=== PATIENT | male | born 1990 | race Caucasian/White ===

== ENCOUNTER 2017-03-14 17:05 | Emergency (ER) | payer OTHER ==
[2017-03-14 17:17] VITALS: BP 128/83
[2017-03-14] MEDS ORDERED: Albuterol 2.5 MG/3 ML NEB.SOL* (0.083%) INH ONE (17:42)
[2017-03-14] MEDS ORDERED: Ipratropium 0.5MG/2.5ML NEB* 0.5 MG/2.5 ML NEB.SOLN INH ONE (17:42)
--- NOTE | 2017-04-14 21:27 | UC ---
Stef Stephens Aidan, scribed for Liza Reza DO on 03/14/17 at 1755 . Respiratory Complaint HPI - HPI Summary HPI Summary: 26 y/o male presents to the Urgent Care with a complaint of an acute, constant, moderate, productive cough that began today. This morning, he coughed up watery fluid. Yesterday, he was diagnosed with HSV and, although his constitutional symptoms, abdominal pain, nausea, and transient sore throat began 2 days ago, they resolved this morning. Associated symptoms include episodes of diaphoresis and SOB. He claims that can only breathe in so deeply before needing to cough. Pt denies any runny nose, ear pain, sinus congestion, LANE, CP, rash, current abdominal pain, nausea, fever, or sores in or around the mouth. 2 days ago, he traveled home from [place]. - History of Current Complaint Chief Complaint: UCRespiratory Stated Complaint: COUGH,DIFFICULTY BREATHING Time Seen by Provider: 03/14/17 17:22 Hx Obtained From: Patient Onset/Duration: Sudden Onset, Lasting Hours, Still Present Timing: Constant Severity Initially: Moderate Severity Currently: Moderate Pain Intensity: 0 Pain Scale Used: 0-10 Numeric Character: Cough: Productive Aggravating Factors: Deep Breaths - Pt is unable to deeply inhale without coughing Alleviating Factors: Nothing - unknown Associated Signs And Symptoms: Negative: Negative - cough, episodes of diaphoresis and SOB (see hpi) - Allergies/Home Medications Allergies/Adverse Reactions: Allergies Allergy/AdvReac Type Severity Reaction Status Date / Time No Known Allergies Allergy Verified 05/21/15 10:24 Home Medications: Home Medications ValACYclovir (*) [Valtrex 1 GM(*)] 1 gm PO BID 03/14/17 [History Confirmed 03/14] PMH/Surg Hx/FS Hx/Imm Hx - Additional Past Medical History Additional PMH: Hx of HSV - Surgical History Surgical History: None - Family History Known Family History: Positive: Hypertension - Social History Occupation: Student Lives: Alone Alcohol Use: Weekly Substance Use Type: None Smoking Status (MU): Never Smoked Tobacco Review of Systems Constitutional: Other - episodes of diaphoresis Skin: Negative Eyes: Negative ENT: Negative Respiratory: Shortness Of Breath, Cough Cardiovascular: Negative Gastrointestinal: Negative Genitourinary: Negative Motor: Negative Neurovascular: Negative Musculoskeletal: Negative Neurological: Negative Psychological: Negative All Other Systems Reviewed And Are Negative: Yes Physical Exam Triage Information Reviewed: Yes Appearance: Well-Appearing, No Pain Distress, Well-Nourished Vital Signs: Initial Vital Signs Temp 96.6 F 03/14/17 17:12 Pulse 77 03/14/17 17:12 Resp 18 03/14/17 17:12 BP 128/83 03/14/17 17:12 Pulse Ox 98 03/14/17 17:12 Vital Signs Reviewed: Yes Eyes: Positive: Conjunctiva Clear. Negative: Discharge ENT: Positive: Hearing grossly normal, TMs normal, Other: - TMs normal, pharynx normal. Negative: Tonsillar swelling, Tonsillar exudate, Trismus, Muffled/ hoarse voice Neck exam: Normal Neck: Positive: Supple, No Lymphadenopathy Respiratory: Positive: No accessory muscle use, Wheezing - Tight scattered wheezes Cardiovascular: Positive: RRR, No Murmur Musculoskeletal Exam: Normal Neurological: Positive: Alert, Muscle Tone Normal Psychological: Positive: Normal Response To Family, Age Appropriate Behavior Skin Exam: Normal, Other - warm, dry, normal color UC Diagnostic Evaluation - Laboratory O2 Sat by Pulse Oximetry: 98 Re-Evaluation - Re-Evaluation First Eval Re-Evaluation Time: 18:19 - better air movement, wheezing resolved. Change: Improved Respiratory Course/Dx - Course Course Of Treatment: 26 y/o male presents with a productive cough and epiasodes of SOB and diaphoresis. - Differential Dx/Diagnosis Differential Diagnosis/HQI/PQRI: Bronchitis, Lower Resp Infection, Sinusitis, Other - viral syndrom Provider Diagnoses: viral syndrom, bronchospasm Discharge - Discharge Plan Condition: Stable Disposition: HOME Prescriptions: Albuterol HFA INHALER* [Ventolin HFA Inhaler*] 2 puff INH Q4H PRN #1 mdi PRN Reason: Sob/Wheezing Benzonatate CAP* [Tessalon 100 MG CAP*] 100 mg PO TID PRN #30 cap PRN Reason: Cough guaiFENesin ER TAB [Mucinex*] 600 mg PO BID PRN #1 box PRN Reason: Cough guaiFENesin/CODIEN 100MG-10MG* [Robitussin AC 100Mg-10Mg*] 5 - 10 ml PO BEDTIME PRN #100 udc MDD 10ml PRN Reason: Cough Patient Education Materials: Viral Syndrome (ED), Bronchospasm (ED) Referrals: Blanco,Edward A, MD [Primary Care Provider] - If Needed () Additional Instructions: INHALED BRONCHODILATORS: You have received a prescription for an inhaled bronchodilator -- a medication which stimulates the airways in the lung to dilate. This improves the flow of air in asthma, bronchitis, and emphysema. These medicines have some similarity to adrenaline, and can cause similar side effects: shakiness, racing heart, and a sense of nervousness. These side effects decrease with time. Contact your doctor if these side effects are severe. Do not over-use the medicine. Too-frequent use of the inhaler may make it ineffective. Call your doctor if the inhaler is not controlling your symptoms at the prescribed doses. COUGH-SUPPRESSANT & EXPECTORANT MEDICATION: You are to use a cough medication as needed for relief of symptoms. This medicine is a combination of an expectorant (to make the mucous thinner and more easily "coughed up") and a cough suppressant (to reduce the frequency of coughing). The cough-suppressant medicine is related to narcotics. You may experience mild nausea and sleepiness. Some patients who are very sensitive to narcotics may have stomach pain from this medicine. Taking the medicine with food reduces these side effects. Do not drive or work with machinery until you know how this medicine affects you. The expectorant should have no side effects. Iodine-containing expectorants (such as organidin) should not be taken by persons with active thyroid disease unless approved by your doctor. Call the doctor if you develop shortness of breath, hives, rash, itching, lightheadedness, or severe nausea and vomiting. EXPECTORANT MEDICATION: WE SENT IN A SCRIPT FOR MUCINEX SO THAT IT IS EASIER FOR YOU TO PICK THE RIGHT MED AT THE PHARMACY. HOWEVER, YOU CAN ALSO GO TO THE [facility] AND BUY PLAIN GUAIFENESIN WITHOU BINDERS OR FILLERS. An expectorant medicine has been prescribed. This type of drug makes mucous thinner, helping the sinuses, nose, and bronchial tubes to remain free of pus and mucous. Expectorants make a cough less severe and more comfortable, and help infected sinuses drain. In general, antihistamines defeat the purpose of the expectorant by making mucous thicker. They should be avoided unless specifically recommended by your physician. JINNY BURNETT: You have received a prescription for Tessalon Perles (benzonatate). This is a non-narcotic medicine for relief of cough. It usually works in about 15- 20 minutes and lasts around four hours. Tessalon Perles should be swallowed. They should not be chewed or dissolved in the mouth (this can produce temporary numbing of the mouth and choking can occur). If you develop any adverse effects such as wheezing, shortness of breath, hives, rash, itching, or lightheadedness, please return at once. The documentation as recorded by the Stef peguero Aidan accurately reflects the service I personally performed and the decisions made by me, Liza Reza DO.
== END 2017-03-14 18:55 | disposition home or self-care (01) ==
LOC: UCEAST 17:05
DX: B34.9 Viral infection, unspecified (principal); J98.01 Acute bronchospasm
CPT/HCPCS: 99212; G0463; J7644